=== PATIENT | female | born 1975 ===

== ENCOUNTER 2018-02-21 15:45 | Emergency (ER) | payer OTHER ==
[2018-02-21 16:02] VITALS: BP 122/84; PULSE 70; TEMP 98; O2SAT 99
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
--- NOTE | 2018-02-21 17:09 | RAD ---
Date of service: 02/21/2018 PROCEDURE: Left Foot Radiographs. HISTORY: medial foot pain COMPARISON: None. FINDINGS: BONES: No acute fracture. JOINTS: Normal. SOFT TISSUES: Normal. OTHER FINDINGS: Trace Achilles enthesophyte. Small inferior plantar calcaneal spur. IMPRESSION: No demonstrated fracture or dislocation.
[2018-02-21 17:58] VITALS: RESP 20
== END 2018-02-21 17:57 | disposition home or self-care (01) ==
LOC: C.ER 15:45
DX: S99.922A Unspecified injury of left foot, initial encounter (principal); Y08.89XA Assault by other specified means, initial encounter; Y92.830 Public park as the place of occurrence of the external cause
CPT/HCPCS: 73630; 96372; 99285; J1885